=== PATIENT | male | born 1955 | race Two or more races ===

== ENCOUNTER 2024-10-12 05:49 | Day surgery (SDC) | payer OTHER ==
[2024-09-13 08:24] LABS: HEMATOCRIT 42.5 % (39.0-48.0); HEMOGLOBIN 14.7 g/dL (13-16.00); MEAN CELL VOLUME 92.5 fL (80.0-100.00); MEAN CORPUSCULAR HGB CONC 34.5 g/dl (32.0-36.0); PLATELET COUNT 230 K/uL (150-450); RED BLOOD COUNT 4.59 M/uL (4.00-6.00); RED CELL DISTRIBUTION WIDTH 12.9 % (11.5-14.5)
[2024-09-13 08:27] LABS: PH,URINE 5.5 (5.0-8.0); URINE APPEARANCE Clear; URINE BILIRRUBIN Negative (NEGATIVE); URINE BLOOD Negative; URINE COLOR Yellow; URINE GLUCOSE Negative (NEGATIVE); URINE KETONE Negative (NEGATIVE); URINE LEUKOCYTE Negative; URINE NITRATE Negative; URINE PROTEIN Negative (NEGATIVE); URINE UROBILINOGEN 0.2 E.U./dl
[2024-09-13 08:30] LABS: URINE EPITHELIAL CELLS 1.7 uL (0.0-38.8); URINE RBC 7.3 uL (0.0-20.8)
[2024-09-13 08:35] LABS: URINE BACTERIA 2.4 uL (0.0-1933)
[2024-09-13 08:42] VITALS: BP 144/76
[2024-09-13 08:54] LABS: INR 1.05; PROTHROMBIN TIME 11.4 SECONDS (9.0-11.5)
[2024-09-13 09:13] LABS: BILIRUBIN TOTAL 0.56 mg/dL (0.3-1.2); CALCIUM 9.3 mg/dL (8.5-10.1); CREATININE SERUM 1.26 mg/dL (0.70-1.30); GFR 56.58; POTASSIUM 4.38 mEq/L (3.5-5.1)
[~2024-10-12] VITALS: Ht 177.8 cm; Wt 74.8 kg
[~2024-10-12 05:49] MED LIST: ADCIRCA20 MG; PRAVASTATIN SOD40 MG PO
[2024-10-12] MEDS ORDERED: CEFAZOLIN SODIUM 1,000 MG VIAL ONE (09:00)
[2024-10-12] MEDS ORDERED: KETOROLAC TROMETHAMINE 30 MG VIAL ONE (09:31)
[2024-10-12] MEDS ORDERED: BUPIVACAINE HCL/MPF 0.5% 30ML VIAL ONE (09:31)
[2024-10-12] MEDS ORDERED: SUGAMMADEX SODIUM 200 MG/2 ML VIAL IV ONE (10:37)
== END 2024-10-12 12:30 | disposition home or self-care (01) ==
LOC: CIR.AMB 05:49
PROVIDERS: ATTEND Orthopaedic Surgery
DX: M75.121 Complete rotator cuff tear or rupture of right shoulder, not specified as traumatic (principal); M24.111 Other articular cartilage disorders, right shoulder; D65 Disseminated intravascular coagulation [defibrination syndrome]; M75.21 Bicipital tendinitis, right shoulder